=== PATIENT | female | born 1965 | race Caucasian/White ===

== ENCOUNTER 2018-09-04 05:56 | Day surgery (SDC) | payer OTHER ==
[2018-09-04] MEDS ORDERED: MIDAZOLAM 1 MG/ML 2 ML INJ ×2 (08:14)
[2018-09-04] MEDS ORDERED: FENTAnyl 50 MCG/ML VIAL (08:15)
== END 2018-09-04 09:35 | disposition home or self-care (01) ==
LOC: GIL 05:56
DX: Z12.11 Encounter for screening for malignant neoplasm of colon (principal); K64.4 Residual hemorrhoidal skin tags; K64.8 Other hemorrhoids
CPT/HCPCS: 45378